=== PATIENT | female | born 1975 | race Two or more races ===

== ENCOUNTER 2020-06-08 23:36 | Emergency (ER) | payer BC, MEDICAID ==
[~2020-06-08] VITALS: Ht 165.1 cm; Wt 78.0 kg
--- NOTE | 2020-06-08 23:40 | NUR ---
PT NOT IN WAITING ROOM FOR TRIAGE.
[2020-06-09 00:05] VITALS: BP 108/63
--- NOTE | 2020-06-09 01:01 | NUR ---
PT REFUSED I&D PER ER MD.
--- NOTE | 2020-06-09 01:05 | NUR ---
PT LEFT WITHOUT ACI.
== END 2020-06-09 01:23 | disposition home or self-care (01) ==
LOC: ER 23:36
DX: L02.811 Cutaneous abscess of head [any part, except face] (principal); Z88.6 Allergy status to analgesic agent; Z88.8 Allergy status to other drugs, medicaments and biological substances

== ENCOUNTER 2020-06-09 01:40 | Emergency (ER) | payer BC, MEDICAID ==
[~2020-06-09] VITALS: Ht 165.1 cm; Wt 78.0 kg
[2020-06-09 01:40] VITALS: BP 115/62
[2020-06-09] MEDS ORDERED: LIDOCAINE 1%-EPI 1:100,000 20 ML VIAL ONE (01:54)
--- NOTE | 2020-06-09 01:56 | NUR ---
SADIA BOLDEN AT BEDSIDE FOR I&D.
--- NOTE | 2020-06-09 02:18 | NUR ---
PT DECLINED WOUND CARE PROVIDED BY EMT
[2020-06-09] MEDS ORDERED: LIDOCAINE 1%-EPI 1:100,000 50 ML VIAL IJ ONE (02:30)
== END 2020-06-09 02:19 | disposition home or self-care (01) ==
LOC: ER 01:40
DX: L02.811 Cutaneous abscess of head [any part, except face] (principal); Z88.6 Allergy status to analgesic agent; Z88.8 Allergy status to other drugs, medicaments and biological substances
CPT/HCPCS: 10060; 99282; A6407; J3490 ×2